=== PATIENT | male | born 1965 | race Caucasian/White ===

== ENCOUNTER 2021-05-09 16:08 | Emergency (ER) | payer OTHER ==
[~2021-05-09] VITALS: Ht 185 cm; Wt 95.0 kg
--- NOTE | 2021-05-09 17:07 | ED Back Pain ---
General Chief Complaint: Back Problems Stated Complaint: BACK/LEG PAIN Nursing Triage Note: PT AMB TO [facility] 5 PT CO OF BACK PAIN STATES WAS LIFTING PIECE OF WOOD, TURNED AND HAD SEVERE BACK PAIN, PT HAS TAKEN FLEXERIL 5MG, HYDROCODONE 5/325, AND 800MG IBUPROFEN@1400 TODAY. PT STATES HAS TRIED HEAT AND ICE ALSO. STATES PAIN STARTS IN LOW BACK AROUND TO L GROIN AND HAS NUMBNESS IN L KNEE AT TIMES. PT ALSO EXPOSED TO COVID, TESTED + ON HOME TEST THIS WEEK Source of Information: Patient Exam Limitations: No Limitations (KAILEY JESUS APRN) History of Present Illness Date Seen by Provider: May 09, 2021 Time Seen by Provider: 17:02 Initial Comments ER with low back pain that radiates down the left leg. This began earlier this afternoon while he was twisting while lifting a piece of wood. He is never had this happen before. No loss of bowel or bladder control. No numbness of genitals though he does have some numbness to the left thigh. Tapping his leg seems to make it better. Prior to arrival at about 2 PM he took a hydrocodone 5/325, Motrin 800 mg and Flexeril 10 mg tablet. Location: Lumbar Spine Timing/Duration: 4-6 Hours Severity: Severe Pain/Injury Location: Back Associated Symptoms: denies symptoms (KAILEY JESUS APRN) Allergies and Home Medications Patient Home Medication List Home Medication List Reviewed: Yes (KAILEY JESUS APRN) Hydrocodone/Acetaminophen (Hydrocodone-Acetamin 5-325 mg) 1 Each Tablet, 1 TAB PO Q4H PRN for PAIN-MODERATE (5-7) Prescribed by: KAILEY JESUS on 05/09/211752 Methocarbamol (Methocarbamol) 750 Mg Tablet, 750 MG PO Q6-8HR Prescribed by: KAILEY JESUS on 05/09/211751 Prednisone (Prednisone) 20 Mg Tab, 40 MG PO DAILY Prescribed by: KAILEY JESUS on 05/09/211751 Review of Systems Constitutional: see HPI; No chills, No fever EENTM: see HPI Respiratory: no symptoms reported Cardiovascular: no symptoms reported Genitourinary: no symptoms reported Musculoskeletal: see HPI, back pain Skin: no symptoms reported Psychiatric/Neurological: No Symptoms Reported (KAILEY JESUS APRN) Past Liwglbk-Ofoiql-Cacirb Hx Patient Social History Tobacco Use?: No Substance use?: No Alcohol Use?: No (KAILEY JESUS APRN) Physical Exam Vital Signs Vital Signs - First Documented 05/09/21 16:25 Temp 36.7 Pulse 83 Resp 18 B/P (MAP) 174/91 (118) Pulse Ox 95 (SANTANA SOTOMAYOR MD) Vital Signs Capillary Refill : Less Than 3 Seconds (KAILEY JESUS APRN) Height, Weight, BMI Height: '" Weight: lbs. oz. kg; 27.00 BMI Method: General Appearance: No Apparent Distress, WD/WN, Anxious, Other (At this time he rates his pain at 3 out of 10.) Neck: Full Range of Motion, Normal Inspection Respiratory: No Accessory Muscle Use, No Respiratory Distress Gastrointestinal: Normal Bowel Sounds, Non Tender, Soft Extremity: Normal Capillary Refill, Normal Inspection Neurologic/Psychiatric: Alert, Oriented x3 Skin: Normal Color, Warm/Dry (KAILEY JESUS APRN) Progress/Results/Core Measures Results/Orders Lab Results Laboratory Tests Test 05/09/21 16:30 Range/Units SARS-CoV-2 RNA (RT-PCR) Negative Negative (SANTANA SOTOMAYOR MD) Vital Signs/I&O 05/09/21 05/09/21 16:25 18:00 Temp 36.7 Pulse 83 83 Resp 18 18 B/P (MAP) 174/91 (118) 174/91 Pulse Ox 95 95 (SANTANA SOTOMAYOR MD) Blood Pressure Mean: 118 Departure Communication (Admissions) NAME: KAVYA LOMBARDO [facility] REC#: [id number] PT STATUS: REG ER : 1965 PHYSICIAN: KAILEY JESUS APRN ADMIT DATE: 05/09/21/ER Signed Date of Exam:05/09/21 CT LUMBAR SPINE WO PROCEDURE: CT lumbar spine without contrast. TECHNIQUE: Multiple contiguous axial images were obtained through the lumbar spine without the use of intravenous contrast. Sagittal and coronal reformations were then performed. Auto Exposure Controls were utilized during the CT exam to meet ALARA standards for radiation dose reduction. DATE: May 09, 2021. INDICATION: 55-year-old male, back pain. COMPARISON: None. FINDINGS: There is a very mild lumbar dextrocurvature. Additional alignment of the lumbar spine is unremarkable. There is no identified compression deformity or fracture. There is no identified pars interarticularis defect. There is mild disc height loss at T12-L1 and L1-L2. CT is limited for assessment of disc pathology as well as additional non-bony causes of pathology in the spinal canal. There does appear to be a diffuse disc bulge at L2-L3 without CT apparent high-grade foraminal narrowing. There is potential mild spinal stenosis. There is a diffuse disc bulge at L3-L4. There are mild right facet degenerative changes at this level. There appears to be moderate to severe bilateral foraminal narrowing. There is also potentially mild spinal stenosis. There is a diffuse disc bulge at L4-L5 without CT apparent high-grade foraminal stenosis. There is potential mild spinal stenosis. The sacroiliac joints are unremarkable in appearance. There are atherosclerotic calcifications. IMPRESSION: 1. No identified acute fracture of the lumbar spine. 2. Multilevel disc degenerative changes of the lumbar spine as estimated level by level above. This may be more optimally evaluated with dedicated MRI lumbar spine without contrast as indicated clinically. Dictated by: Dictated on workstation # [id number] Dict: 05/09/21 1718 Trans: 05/09/21 1740 [facility] [phone] Interpreted by: BHARGAVI CARTER MD Electronically signed by: BHARGAVI CARTER MD 05/09/21 174 (KAILEY JESUS APRN) Impression Primary Impression: Lumbar radiculopathy Disposition: HOME, SELF-CARE Condition: Stable Departure-Patient Inst. Decision time for Depature: 17:06 (KAILEY JESUS APRN) Patient Instructions: Radiculopathy (DC) Add. Discharge Instructions: 1. If pain persists then follow-up with your primary care provider to discuss ordering an MRI to evaluate the discs which cannot be seen well on CT imaging. Continue with pain medication in the meantime. No lifting over about 5 pounds for 10 days. All discharge instructions reviewed with patient and/or family. Voiced understanding. Scripts Hydrocodone/Acetaminophen (Hydrocodone-Acetamin 5-325 mg) 1 Each Tablet 1 TAB PO Q4H PRN for PAIN-MODERATE (5-7), #14 TAB Prov: KAILEY JESUS APRN 05/09/21 Methocarbamol (Methocarbamol) 750 Mg Tablet 750 MG PO Q6-8HR for Back Pain, #14 TAB Prov: KAILEY JESUS APRN 05/09/21 Prednisone (Prednisone) 20 Mg Tab 40 MG PO DAILY, #8 TAB 0 Refills Prov: KAILEY JESUS APRN 05/09/21 Work/School Note: Work Release Form Date Seen in the Emergency Department: May 09, 2021 Return to Work: May 10, 2021 Other Restrictions Listed Below: No lifting over 5 pounds for 10 days f rom 05/09/21 ATTENDING PHYSICIAN NOTE: I was physically present as attending physician in the emergency department during the care of this patient, but I was not directly involved in the decision making or delivery of care for this patient. (SANTANA SOTOMAYOR MD) KAILEY JESUS APRN May 09, 2021 17:07 SANTANA SOTOMAYOR MD May 09, 2021 19:49
--- NOTE | 2021-05-09 17:40 | Diagnostic Imaging Report ---
PROCEDURE: CT lumbar spine without contrast. TECHNIQUE: Multiple contiguous axial images were obtained through the lumbar spine without the use of intravenous contrast. Sagittal and coronal reformations were then performed. Auto Exposure Controls were utilized during the CT exam to meet ALARA standards for radiation dose reduction. DATE: May 09, 2021. INDICATION: 55-year-old male, back pain. COMPARISON: None. FINDINGS: There is a very mild lumbar dextrocurvature. Additional alignment of the lumbar spine is unremarkable. There is no identified compression deformity or fracture. There is no identified pars interarticularis defect. There is mild disc height loss at T12-L1 and L1-L2. CT is limited for assessment of disc pathology as well as additional non-bony causes of pathology in the spinal canal. There does appear to be a diffuse disc bulge at L2-L3 without CT apparent high-grade foraminal narrowing. There is potential mild spinal stenosis. There is a diffuse disc bulge at L3-L4. There are mild right facet degenerative changes at this level. There appears to be moderate to severe bilateral foraminal narrowing. There is also potentially mild spinal stenosis. There is a diffuse disc bulge at L4-L5 without CT apparent high-grade foraminal stenosis. There is potential mild spinal stenosis. The sacroiliac joints are unremarkable in appearance. There are atherosclerotic calcifications. IMPRESSION: 1. No identified acute fracture of the lumbar spine. 2. Multilevel disc degenerative changes of the lumbar spine as estimated level by level above. This may be more optimally evaluated with dedicated MRI lumbar spine without contrast as indicated clinically. Dictated by: Dictated on workstation # [id number]
[2021-05-09] MEDS ORDERED: PRD20T PO (17:52)
[2021-05-09] MEDS ORDERED: METH-732 PO (17:52)
[2021-05-09] MEDS ORDERED: ACHD5005 PO (17:52)
[2021-05-09 18:00] VITALS: BP 174/91
== END 2021-05-09 18:00 | disposition home or self-care (01) ==
LOC: ER 16:12
DX: M54.16 Radiculopathy, lumbar region (principal); Z20.822 Contact with and (suspected) exposure to COVID-19
CPT/HCPCS: 72131; 87635; 87636

== ENCOUNTER → 2021-05-19 | Outpatient (CLI) | payer OTHER ==
[~2021-05-19] MED LIST: ACHD5005 PO; METH-732 PO; PRD20T PO
--- NOTE | 2021-05-19 09:32 | Diagnostic Imaging Report ---
PROCEDURE: MRI lumbar spine. TECHNIQUE: Multiplanar, multisequence MRI of the lumbar spine was performed without contrast. INDICATION: Low back pain. COMPARISON: CT lumbar spine without contrast 05/09/2021. FINDINGS: Normal alignment. Vertebral body heights are preserved. No suspicious bone marrow signal. No abnormal signal in the conus which terminates at L1-L2. Normal morphology of the cauda equina. The visualized pelvis is unremarkable. No acute findings in the paravertebral soft tissues. L1-L2: Left paracentral disc protrusion results in mild left lateral recess and spinal canal narrowing. Moderate left neural foraminal narrowing. L2-L3: Right paracentral disc protrusion results in mild right lateral recess narrowing. Facet arthropathy and ligamentous hypertrophy also contribute to mild spinal canal narrowing. Mild right neural foraminal narrowing. L3-L4: Annular disc bulge, ligamentous hypertrophy and facet arthropathy result in mild spinal canal and bilateral lateral recess narrowing. Moderate to severe bilateral neural foraminal narrowing. L4-L5: Central disc protrusion results in moderate bilateral lateral recess narrowing. Mild spinal canal narrowing. Moderate bilateral neural foraminal narrowing. L5-S1: No spinal canal or lateral recess narrowing. No neural foraminal narrowing. IMPRESSION: 1. Spondylotic changes result in scattered high-grade lateral recess and neural foraminal narrowing detailed above level by level. 2. No high-grade spinal canal stenosis. 3. No acute osseous findings. Dictated by: Dictated on workstation # [id number]
== END ==
LOC: RAD 08:45
PROVIDERS: ATTEND Physician Assistant
DX: M47.816 Spondylosis without myelopathy or radiculopathy, lumbar region (principal)
CPT/HCPCS: 72148

== ENCOUNTER → 2021-06-05 | Outpatient (RCR) | payer OTHER | END | disposition home or self-care (01) | PROVIDERS: ATTEND Physician Assistant | DX: M54.16 Radiculopathy, lumbar region (principal) ==

== ENCOUNTER 2021-06-12 09:02 | Outpatient (RCR) | payer OTHER | END 2021-06-22 10:10 | disposition home or self-care (01) | PROVIDERS: ATTEND Physician Assistant | DX: M54.16 Radiculopathy, lumbar region (principal) ==

== ENCOUNTER 2021-08-01 10:19 | Outpatient (RCR) | payer OTHER | END 2021-08-03 | disposition home or self-care (01) | PROVIDERS: ATTEND Physician Assistant | DX: Z98.890 Other specified postprocedural states (principal) ==

== ENCOUNTER 2021-08-28 09:45 | Outpatient (RCR) | payer OTHER | END 2021-09-02 | disposition home or self-care (01) | PROVIDERS: ATTEND Physician Assistant | DX: Z98.890 Other specified postprocedural states (principal) ==

== ENCOUNTER 2022-08-17 19:47 | Outpatient (CLI) | payer OTHER | END 2022-08-18 05:45 | disposition home or self-care (01) | LOC: SLEEP 19:47 | PROVIDERS: ATTEND Internal Medicine Critical Care Medicine | DX: G47.33 Obstructive sleep apnea (adult) (pediatric) (principal) | CPT/HCPCS: 95811 ==

== ENCOUNTER → 2022-10-26 | Outpatient (CLI) | payer OTHER ==
--- NOTE | 2022-10-26 12:47 | Diagnostic Imaging Report ---
PROCEDURE: US Venous Lower Ext Chin. TECHNIQUE: Multiple real-time grayscale images were obtained over the lower extremities in various projections, bilaterally. Additional duplex Doppler and color Doppler images were also obtained. INDICATION: Bilateral lower extremity edema. There is no evidence of right or left lower extremity DVT. Both lower extremity deep venous systems demonstrate normal compressibility with normal response to augmentation and Valsalva. There is a popliteal cyst on the left measuring 3.0 x 0.8 x 1.7 cm. IMPRESSION: 1. No evidence of right or left lower extremity DVT. 2. Left popliteal cyst. Dictated by: Dictated on workstation # [id number]
== END ==
LOC: RAD 11:08
PROVIDERS: ATTEND Internal Medicine Critical Care Medicine
DX: M71.22 Synovial cyst of popliteal space [Baker], left knee (principal); R60.0 Localized edema
CPT/HCPCS: 93970